=== PATIENT | male | born 1985 | race Caucasian/White ===

== ENCOUNTER 2020-11-14 22:52 | Emergency (ER) | payer SELFPAY ==
[2020-11-14 23:51] LABS: BASOPHIL 0.5 % (0-2); EOSINOPHIL 0.4 % (0-5); HCT 45.8 % (42.0-52.0); HGB 16.1 g/dl (13.2-18.0); LYMPHOCYTE 13.9 % (15-48); MCH 32.1 pg (25.0-31.0); MCHC 35.2 g/dL (32.0-36.0); MCV 91.2 fL (78.0-100.0); MONOCYTE 8.2 % (0-12); MPV 11.4 fL (6.0-9.5); NEUTROPHIL 76.3 % (41-80); NRBC 0; PLT 164 K/uL (150-400); RBC 5.02 M/uL (4.70-6.00); RDW 12.5 % (11.5-14.0); WBC 15.3 K/uL (4.0-10.5)
[2020-11-15 00:09] LABS: ALBUMIN 3.5 g/dL (3.4-5.0); BILIRUBIN - TOTAL 0.6 mg/dL (0.2-1.0); BUN/CREAT RATIO (CALC) 22.2 RATIO; CREATININE 0.81 mg/dL (0.67-1.17); POTASSIUM 4.1 mmol/L (3.5-5.1); TOTAL PROTEIN 7.5 g/dL (6.4-8.2)
[2020-11-15 00:41] LABS: BILIRUBIN NEGATIVE (NEGATIVE); BLOOD 3+ Ery/uL (NEGATIVE); COLOR YELLOW (YELLOW); GLUCOSE (U) 1+ mg/dL (NORMAL); LEUKOCYTES NEGATIVE Leu/uL (NEGATIVE); NITRITE NEGATIVE (NEGATIVE); PROTEIN 2+ mg/dL (NEGATIVE); SPECIFIC GRAVITY >=1.030 (1.001-1.030); UROBILINOGEN 0.2 mg/dL (0.2-1.0)
[2020-11-15 00:43] LABS: CLARITY CLOUDY (CLEAR)
[2020-11-15 00:46] LABS: BACTERIA TRACE; URINARY RBC TNTC; URINARY WBC RARE
[2020-11-15 00:47] LABS: URIC ACID CRYSTALS LARGE
[2020-11-15] MEDS ORDERED: FLOMAX 0.4 MG0.4 MG PO (02:24)
[2020-11-15] MEDS ORDERED: ZOFRAN4 M1 PO (02:24)
[2020-11-15] MEDS ORDERED: OXY-IR 5MG5 MG PO (02:24)
[2020-11-15] MEDS ORDERED: ZESTRIL5 MG PO (02:29)
== END 2020-11-15 02:44 | disposition home or self-care (01) ==
LOC: FER 22:52
PROVIDERS: Emergency Medicine
DX: N13.2 Hydronephrosis with renal and ureteral calculous obstruction (principal); I10 Essential (primary) hypertension; F17.200 Nicotine dependence, unspecified, uncomplicated
CPT/HCPCS: 36415; 80053; 81001; 83690; 85025; J1170; J1885; J2405; J3490; J7030

== ENCOUNTER 2021-11-24 15:54 | Emergency (ER) | payer SELFPAY ==
[~2021-11-24 15:54] MED LIST: FLOMAX 0.4 MG0.4 MG PO; OXY-IR 5MG5 MG PO; ZESTRIL5 MG PO; ZOFRAN4 M1 PO
[2021-11-24 17:28] LABS: BASOPHIL 0.4 % (0-2); EOSINOPHIL 0.2 % (0-5); HCT 45.8 % (42.0-52.0); HGB 16.3 g/dl (13.2-18.0); LYMPHOCYTE 11.8 % (15-48); MCHC 35.6 g/dL (32.0-36.0); MCV 89.8 fL (78.0-100.0); MONOCYTE 6.4 % (0-12); MPV 11.1 fL (6.0-9.5); NEUTROPHIL 80.4 % (41-80); NRBC 0; PLT 204 K/uL (150-400); RDW 12.4 % (11.5-14.0); WBC 17.2 K/uL (4.0-10.5)
[2021-11-24 17:45] LABS: POTASSIUM 4.4 mmol/L (3.5-5.1)
[2021-11-24 17:45] LABS: BILIRUBIN NEGATIVE (NEGATIVE); BLOOD 3+ Ery/uL (NEGATIVE); CLARITY CLEAR (CLEAR); COLOR YELLOW (YELLOW); GLUCOSE (U) NORMAL (NORMAL); LEUKOCYTES NEGATIVE Leu/uL (NEGATIVE); NITRITE NEGATIVE (NEGATIVE); PROTEIN 2+ mg/dL (NEGATIVE); SPECIFIC GRAVITY >=1.030 (1.001-1.030); UROBILINOGEN 0.2 mg/dL (0.2-1.0)
[2021-11-24] MEDS ORDERED: NORCO 5-325 TA1 EACH PO (18:32)
[2021-11-24] MEDS ORDERED: FLOMAX0.4 MG PO (18:32)
== END 2021-11-24 18:56 | disposition home or self-care (01) ==
LOC: FER 15:54
PROVIDERS: Nurse Practitioner Family
DX: N13.2 Hydronephrosis with renal and ureteral calculous obstruction (principal); Z28.310 Unvaccinated for COVID-19
CPT/HCPCS: 36415; 80048; 81001; 85025; J1885; J2405; J7030